=== PATIENT | female | born 1980 | race Two or more races ===

== ENCOUNTER 2016-03-10 11:18 | Emergency (ER) | payer MEDICAID ==
[~2016-03-10] VITALS: Ht 165.1 cm; Wt 77.1 kg
[~2016-03-10 11:18] MED LIST: CAR200T PO; CARB100S PO; NAP500T PO; SERT-135 PO; [UNRECOGNIZED DRUG - CODE] PO
[2016-03-10 12:10] LABS: Basophils # (auto) 0 uL; Basophils % (auto) 0.3 % (0.0-2.0); Eosinophils # (auto) 0.1 uL; Eosinophils % (auto) 0.8 % (0.0-7.0); Hemoglobin 14.9 g/dL (12.2-16.2); Lymphocytes # (auto) 1.7 uL; Lymphocytes % (auto) 14.6 % (10.0-50.0); Mean Corpuscular Hemoglobin 30.7 pg (28.0-32.0); Mean Corpuscular Hgb Conc. 32.5 g/dL (32.0-36.0); Mean Corpuscular Volume 94.6 fL (80.0-100.0); Mean Platelet Volume 9.1 fL (7.4-10.4); Monocytes # (auto) 0.5 uL; Monocytes % (auto) 4.2 % (0.0-12.0); Neutrophils # (auto) 9.1 uL; Neutrophils % (auto) 80.1 % (37.0-80.0); Platelet Count (auto) 299 10^3/uL (140-450); Red Cell Distribution Width 13.4 % (11.6-16.0); White Blood Cell 11.4 10^3/uL (4.4-10.8)
[2016-03-10 12:34] LABS: Albumin 3.9 g/dL (3.4-5.0); Alkaline Phosphatase 114 U/L (45-117); Anion Gap 7 (5-15); Aspartate Aminotransferase 23 U/L (15-37); BUN/Creatinine Ratio 22.8; Bilirubin, Total 0.8 mg/dL (0.2-1.0); Blood Urea Nitrogen 18 mg/dL (7-18); Calcium 8.8 mg/dL (8.5-10.1); Carbon Dioxide 23 mmol/L (21-32); Chloride 101 mmol/L (98-107); GFR African American 107 mL/min; GFR Non-African American 88 mL/min; Glucose 124 mg/dL (74-106); Potassium 3.6 mmol/L (3.5-5.1); Sodium 131 mmol/L (136-145); Total Protein 7.9 g/dL (6.4-8.2)
[2016-03-10 12:44] LABS: Salicylate 2.8 mg/dL (2.8-20.0)
[2016-03-10 12:46] LABS: Acetaminophen < 2.0 ug/mL (10-30)
== END 2016-03-10 13:37 | disposition left against medical advice (07) ==
LOC: EDBD 11:18 → ER 11:20
DX: S51.812A Laceration without foreign body of left forearm, initial encounter (principal); X83.8XXA Intentional self-harm by other specified means, initial encounter; Y93.89 Activity, other specified; Y99.8 Other external cause status; Y92.89 Other specified places as the place of occurrence of the external cause
CPT/HCPCS: 36415; 80053; 80329; 81025; 85025; 93005; G0434; 94761